=== PATIENT | female | born 1985 | race Caucasian/White ===

== ENCOUNTER 2018-03-10 14:07 | Emergency (ER) | payer SELFPAY ==
[~2018-03-10] VITALS: Ht 175.3 cm; Wt 93.0 kg
--- NOTE | 2018-03-10 14:34 | NUR ---
patient in room sitting up on chair. No complaint of pain. Well groamed and clean. No respiratory distress.
[2018-03-10 14:41] VITALS: BP 145/97
--- NOTE | 2018-03-10 14:42 | NUR ---
Patient given printed after care material, verbalizes understanding. She is in the room with patient in 5A. No complaint of pain. Says she will take uber home.
== END 2018-03-10 14:45 | disposition home or self-care (01) ==
LOC: ER 14:07
DX: S20.219A Contusion of unspecified front wall of thorax, initial encounter (principal); V49.9XXA Car occupant (driver) (passenger) injured in unspecified traffic accident, initial encounter; Y93.89 Activity, other specified; Y92.410 Unspecified street and highway as the place of occurrence of the external cause; Y99.8 Other external cause status
CPT/HCPCS: 99281; A4663